=== PATIENT | female | born 1970 | race Caucasian/White ===

== ENCOUNTER 2016-05-20 12:41 | Emergency (ER) | payer OTHER ==
[~2016-05-20] VITALS: Ht 165.1 cm; Wt 51.7 kg
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
[2016-05-20] MEDS ORDERED: IBUPROFEN600 MG ORAL (14:23)
[2016-05-20 14:41] VITALS: BP 120/79
--- NOTE | 2016-05-20 16:33 | Diagnostic Imaging Report ---
Indication: pain Findings: 3 views of the right hand were obtained. Normal bony mineralization and alignment are demonstrated. No acute fractures, erosions, or periosteal reaction are seen. Soft tissues are unremarkable. Impression: Negative examination of the right hand.
== END 2016-05-20 14:41 | disposition home or self-care (01) ==
LOC: EMR 13:20
DX: S60.031A Contusion of right middle finger without damage to nail, initial encounter (principal); S60.041A Contusion of right ring finger without damage to nail, initial encounter; X58.XXXA Exposure to other specified factors, initial encounter; Y93.9 Activity, unspecified; Y92.9 Unspecified place or not applicable; Y99.9 Unspecified external cause status
CPT/HCPCS: 29280; 99283

== ENCOUNTER 2018-07-14 10:35 | Emergency (ER) | payer OTHER ==
[~2018-07-14] VITALS: Ht 172.7 cm; Wt 51.7 kg
[~2018-07-14 10:35] MED LIST: IBUPROFEN600 MG ORAL
[2018-07-14 10:50] VITALS: BP 152/98
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
[2018-07-14 13:05] VITALS: BP 132/88
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
== END 2018-07-14 13:15 | disposition home or self-care (01) ==
LOC: EMR 11:22
DX: S30.0XXA Contusion of lower back and pelvis, initial encounter (principal); S40.021A Contusion of right upper arm, initial encounter; S00.83XA Contusion of other part of head, initial encounter; S80.10XA Contusion of unspecified lower leg, initial encounter; J45.909 Unspecified asthma, uncomplicated; Y04.8XXA Assault by other bodily force, initial encounter; Y92.9 Unspecified place or not applicable
CPT/HCPCS: 70450; 70486; 99284